=== PATIENT | female | born 1965 | race Two or more races ===

== ENCOUNTER 2019-09-20 05:42 | Day surgery (SDC) | payer OTHER ==
[2019-09-14 12:59] LABS: BASOPHILS # (AUTO) 0.1 X10'3 (0-0.2); BASOPHILS % (AUTO) 0.8 % (0-1); EOSINOPHILS # (AUTO) 0.1 X10'3 (0-0.9); EOSINOPHILS % (AUTO) 0.8 % (0-6); LYMPHOCYTES # (AUTO) 2.9 X10'3 (1.1-4.8); LYMPHOCYTES % (AUTO) 35.9 % (21-51); MEAN CORPUSCULAR HGB CONC 33.2 g/dL (33.0-36.5); MEAN CORPUSCULAR VOLUME 90.5 FL (78-98); MEAN PLATELET VOLUME 8.6 FL (7.4-10.4); MONOCYTES # (AUTO) 0.5 X10'3 (0-0.9); MONOCYTES % (AUTO) 5.6 % (2-12); NEUTROPHILS # (AUTO) 4.7 X10'3 (1.8-7.7); NEUTROPHILS % (AUTO) 56.9 % (42-75); PRE OP HEMATOCRIT 40.8 % (35.0-45.0); PRE OP HEMOGLOBIN 13.5 g/dL (12.0-16.0); PRE OP PLATELET COUNT 291 X10'3 (140-440); RED CELL DISTRIBUTION WIDTH 13.3 % (11.5-14.5)
[2019-09-14 13:11] LABS: ALBUMIN 4.1 G/DL (3.4-5.0); ALBUMIN/GLOBULIN RATIO 1.1 (1.1-1.5); ALKALINE PHOSPHATASE 106 IU/L (46-116); BLOOD UREA NITROGEN 9 MG/DL (7-18); BUN/CREATININE RATIO 11.5 (6.6-38.0); CHLORIDE 108 MMOL/L (99-107); CREATININE 0.78 MG/DL (0.40-0.90); PRE OP ALT 36 U/L (30-65); PRE OP ANION GAP 8 (8-16); PRE OP AST 34 U/L (10-37); PRE OP BILIRUB, TOTAL 0.4 MG/DL (0.0-1.0); PRE OP GLUCOSE 94 MG/DL (70-104); PRE OP POTASSIUM 4.3 MMOL/L (3.4-5.1); PRE OP SODIUM 143 MMOL/L (135-145); TOTAL CARBON DIOXIDE 26.8 MMOL/L (24-32); TOTAL PROTEIN 7.7 G/DL (6.4-8.2); eGFR 76 ML/MIN
[2019-09-20] VITALS (10 sets, daily range): BP systolic 123–137; BP diastolic 71–84
[~2019-09-20] VITALS: Ht 165.1 cm; Wt 77.1 kg
[~2019-09-20 05:42] MED LIST: IBUP200C5 PO; cefazolin/dext.iso 2gm/50ml 50 ML IV ONE; famotidine 20mg tablet PO ONE; ringers solution, lacted 1,000 ML IV SCH; vancomycin 1,500 MG in NS 500ml IV soln IV ONE
[2019-09-20] MEDS ORDERED: BUPIVAcaine/PF 2.5mg/ml (0.25%) 10ml vial ONE (06:38)
[2019-09-20] MEDS ORDERED: MIDAZolam 5mg/5ml vial ONE (07:17)
[2019-09-20] MEDS ORDERED: fentaNYL/PF 50MCG/1 ML 2ML syringe ONE (07:17)
[2019-09-20] MEDS ORDERED: sevoflurane 250ml liquid IH ONE (07:18)
[2019-09-20] MEDS ORDERED: LIDOcaine 2% (20mg/ml) 5ml vial ONE (08:05)
[2019-09-20] MEDS ORDERED: propofol inj 20 ML IV ONE (08:05)
[2019-09-20] MEDS ORDERED: rocuronium 10mg/ml inj IV ONE (08:05)
[2019-09-20] MEDS ORDERED: ROPIVAcaine 0.5% (5mg/ml) 30ml vial ONE (08:05)
[2019-09-20] MEDS ORDERED: ringers solution, lacted 1,000 ML IV SCH (08:36)
[2019-09-20] MEDS ORDERED: morphine 2 MG/ML inj. syringe IV PRN (08:40)
[2019-09-20] MEDS ORDERED: morphine 4 MG/ML inj SYRINge IV PRN (08:40)
[2019-09-20] MEDS ORDERED: ROPIVAcaine 0.2% (10 MG/5 ML) BOLUS INJECTION INTERSCALE PRN (08:40)
[2019-09-20] MEDS ORDERED: meperidine/PF 25mg/ml syringe IV PRN ×3 (08:40)
[2019-09-20] MEDS ORDERED: proCHLORperazine 10 MG/2 ml inj IV PRN (08:40)
[2019-09-20] MEDS ORDERED: ondansetron/PF 4mg/2ml inj IV PRN (08:40)
[2019-09-20] MEDS ORDERED: ROPIVAcaine 0.2%/PF PUMP/bolus 550 ML INTERSCALE SCH (09:30)
[2019-09-20] MEDS ORDERED: glycopyrrolate 0.2mg/ml inj ONE (10:00)
[2019-09-20] MEDS ORDERED: ondansetron/PF 4mg/2ml inj ONE (10:00)
[2019-09-20] MEDS ORDERED: neostigmine methylsulfate 1 MG/ML 10ml vial ONE (10:00)
[2019-09-20] MEDS ORDERED: dexamethasone sod phosphate 4mg/ml inj. ONE (10:00)
[2019-09-20] MEDS ORDERED: ePHEDrine 50MG/ML INJ. ONE (10:02)
--- NOTE | 2019-09-20 10:13 | NUR ---
All VS stable and mask to 10L O2 sats 100%.
--- NOTE | 2019-09-20 10:13 | NUR ---
Received from OR via [facility], accompanied by Anesthesiologist DR VANN and report given by Anesthesiolgist. PATIENT WAKING UP, DENIES PAIN, V/S WNL, NEUROVASCULAR CHECKS INTACT, 20G PIV left AC , guaze dressing and tape to right shoulder CDI W/ COLD POWDER PACK,pt states she has no pain and is able to move fingers.
[2019-09-20] MEDS ORDERED: HYDROcodone/acetaminophen 10/325mg tab PO PRN (10:40)
--- NOTE | 2019-09-20 12:13 | NUR ---
Pt discharged to vehicle by wheelchair without incident after IV dc'd. Pt and niece (at bedside to interpret) educated at great length on use of On-Q medicine management and how to DC catheter in 4 days per orders. Pt knows to call office with any questions. Education material also sent home with family and pt for ON-Q management. Pt has pain meds already called in to pharmacy and have follow up appointment. Pt demonstrated PROM exercises she's been educated on at ortho clinic. Both pt and niece verbalized understanding of all DC instructions, ON-Q management and DC. She is still able to move fingers, 0/10 pain, good cap refill.
== END 2019-09-20 12:13 | disposition home or self-care (01) ==
LOC: PAS 05:42
PROVIDERS: ATTEND Orthopaedic Surgery
DX: M75.121 Complete rotator cuff tear or rupture of right shoulder, not specified as traumatic (principal); M65.811 Other synovitis and tenosynovitis, right shoulder; M19.011 Primary osteoarthritis, right shoulder; K21.9 Gastro-esophageal reflux disease without esophagitis; G89.18 Other acute postprocedural pain; E66.9 Obesity, unspecified; Z68.28 Body mass index [BMI] 28.0-28.9, adult; Z79.899 Other long term (current) drug therapy; Z11.59 Encounter for screening for other viral diseases
CPT/HCPCS: 29824; 29826; 29827; 36415; 64416; 80053; 82948; 85025; 93005; C1713; J1100; J2001; J2250; J2405; J2704; J2710; J2795; J3010; J3370; J3490; J7040; J7120; U0003; A4565; A4618; A6449; A7000